=== PATIENT | female | born 1955 | race African-American/Black ===

== ENCOUNTER 2020-01-16 15:16 | Emergency (ER) | payer MEDICARE ==
[~2020-01-16] VITALS: Ht 157.5 cm; Wt 76.7 kg
[~2020-01-16 15:16] MED LIST: ALENDRONATE SOD70 MG PO; AMLODIPINE BESYL5 MG PO; ATORVASTATIN CA10 MG PO; GABAPENTIN300 MG PO; MELOXICAM7.5 MG PO; NICOTINE PATCH TD; OLMESARTAN PO; PANTOPRAZOLE SO40 MG PO; SENOKOT-S TABL1 EACH PO; TRIBENZOR 40-51 EACH PO; XARELTO10 MG PO
[2020-01-16] MEDS ORDERED: ONDANSETRON HCL 4 MG ORAL DISINTEGRATING TAB PO ONE (15:45)
[2020-01-16] MEDS ORDERED: KETOROLAC TROMETHAMINE 60 MG/2 ML VIAL IM ONE (15:45)
[2020-01-16] MEDS ORDERED: METHYLPREDNISOLONE SOD SUCC 125 MG/2ML VIAL INJ ONE (15:45)
[2020-01-16] MEDS ORDERED: LIDOCAINE 4% PATCH TP SCH (16:00)
--- NOTE | 2020-01-16 17:42 | Emergency Department Note ---
History of Present Illnes History of Present Illness Chief Complaint: General Medicine Complaints History of Present Illness This is a 64 year old female arrived to the ED stating she feels lonely. Patient states she also like something for her pain and didn't want to take her hydrocodone or [place] because she wanted to come to the ER To Talk to Patient Denies Being Homicidal or Suicidal Ideations. Patient Denies Being Depressed but States Sometimes She Gets Lonely at Home after Her Surgery. Patient Denies Any Recent Trauma Postop.. Historian: Patient, Punch Machine Operator/EMS Arrival Mode: [place] [facility] Onset (how long ago): day(s) Radiation: Reports non-radiation Onset quality: gradual Duration (how long): day(s) Timing of current episode: intermittent Progression: waxing and waning Associated symptoms: Reports denies other symptoms Past Medical/Family History Physician Review I have reviewed the patient's past medical and family history. Any updates have been documented here. Past Medical History Recent Fever: No Clinical Suspicion of Infectio: No New/Unexplained Change in Ment: No Past Medical History: Hypertension, TIA, GERD, Hyperlipedemia, Osteoarthritis Other Medical History: SMOKER Past Surgical History: Hysterectomy, Hip Replacement, Back Surgery Other Surgery: EYE LASER Social History Smoking Cessation: Current some day smoker Alcohol Use: None Any Illegal Drug Use: No TB Exposure/Symptoms: No Physically hurt or threatened: No Other Last Tetanus: UTD Any Pre-Existing Lines (PICC,: No Is patient up to date on immun: Yes Last Flu: UNKNOWN Last Pneumovax: UNKNOWN Review of Systems Review of Systems Constitutional: Reports no symptoms EENTM: Reports no symptoms Cardiovascular: Reports no symptoms Respiratory: Reports no symptoms Gastrointestinal: Reports no symptoms Genitourinary: Reports no symptoms Musculoskeletal: Reports as per HPI Integumentary: Reports no symptoms Neurological: Reports no symptoms Psychological: Reports no symptoms Endocrine: Reports no symptoms Hematological/Lymphatic: Reports no symptoms Physical Exam Related Data Allergies: Coded Allergies: lisinopril (Verified Allergy, Severe, rash, anaphylaxis, 01/16/20) Triage Vital Signs Vital Signs Date Time Temp Pulse Resp B/P (MAP) Pulse Ox O2 Delivery O2 Flow Rate FiO2 01/16/20 15:21 98.6 79 18 134/89 100 Vital signs reviewed: Yes Physical Exam CONSTITUTIONAL Constitutional: Present well-developed, Present well-nourished HENT HENT: Present normocephalic, Present atraumatic, Present oropharynx clear/moist, Present nose normal HENT L/R: Present left ext ear normal, Present right ext ear normal EYES Eyes: Reports PERRL, Reports conjunctivae normal NECK Neck: Present ROM normal PULMONARY Pulmonary: Present effort normal, Present breath sounds normal CARDIOVASCULAR Cardiovascular: Present regular rhythm, Present heart sounds normal, Present capillary refill normal, Present normal rate GASTROINTESTINAL Abdominal: Present soft, Present nontender, Present bowel sounds normal GENITOURINARY Genitourinary: Present exam deferred SKIN Skin: Present warm, Present dry MUSCULOSKELETAL Musculoskeletal: Present ROM normal NEUROLOGICAL Neurological: Present alert, Present oriented x 3, Present no gross motor or sensory deficits PSYCHOLOGICAL Psychological: Present mood/affect normal, Present judgement normal Assessment & Plan Medical Decision Making MDM 64-year-old female arrived to the ED stating she feels lonely and didn't take her pain medicine. Patient is on hydrocodone and oxycodone. Patient states her pain is fine now but just wanted to chitchat with someone. Patient anorexia intact laboratory with support pain controlled in stable for discharge home. Assessment & Plan Final Impression: (1) Hip pain Last Vital Signs Date Time Temp Pulse Resp B/P (MAP) Pulse Ox O2 Delivery O2 Flow Rate FiO2 01/16/20 16:09 99.2 61 18 133/74 99 Home Meds Reported Medications Pantoprazole Sodium* (PROTONIX) 40 Mg Tablet.dr, 40 MG PO DAILY, TAB 01/06/20 Sennosides/Docusate Sodium (SENOKOT-S TABLET) 1 Each Tablet, 1 TAB PO DAILY, TAB 01/06/20 [Olmesartan] No Conflict Check, 40 MG PO DAILY 01/06/20 Rivaroxaban (XARELTO) 10 Mg Tablet, 10 MG PO DAILY 01/06/20 [Nicotine Patch] No Conflict Check, 21 MG TD DAILY 01/06/20 Alendronate Sodium (ALENDRONATE SODIUM) 70 Mg Tablet, 70 MG PO qwk 12/31/19 Gabapentin (GABAPENTIN) 300 Mg Capsule, 300 MG PO BID, #60 CAP 12/31/19 Amlodipine Besylate (AMLODIPINE BESYLATE) 5 Mg Tablet, 5 MG PO DAILY, #30 TAB 12/31/19 Atorvastatin Calcium (ATORVASTATIN CALCIUM) 10 Mg Tablet, 10 MG PO DAILY, #30 TAB 12/31/19 Medications in the ED Ondansetron HCl 4 mg ONCE ONCE PO Last administered on 01/16/20at 15:55; Admin Dose 4 MG; Start 01/16/20 at 15:45; Stop 01/16/20 at 15:46; Status DC Methylprednisolone Sodium Succinate 125 mg ONCE ONCE INJ Last administered on 01/16/20at 15:58; Admin Dose 125 MG; Start 01/16/20 at 15:45; Stop 01/16/20 at 15:46; Status DC Ketorolac Tromethamine 60 mg ONCE ONCE IM Last administered on 01/16/20at 15:55; Admin Dose 60 MG; Start 01/16/20 at 15:45; Stop 01/16/20 at 15:46; Status DC Lidocaine 1 ea DAILY TP Last administered on 01/16/20at 16:02; Admin Dose 1 EA; Start 01/16/20 at 16:00; Stop 02/15/20 at 15:59 RAVI SCOTT DO Jan 16, 2020 17:42
[2020-01-16 18:24] VITALS: BP 133/74
== END 2020-01-16 18:28 | disposition home or self-care (01) ==
LOC: ER 15:16
DX: M25.552 Pain in left hip (principal); Z96.641 Presence of right artificial hip joint; I10 Essential (primary) hypertension; K21.9 Gastro-esophageal reflux disease without esophagitis; Z86.73 Personal history of transient ischemic attack (TIA), and cerebral infarction without residual deficits; F17.210 Nicotine dependence, cigarettes, uncomplicated
CPT/HCPCS: 99284; J1885; J2930; Q0162